=== PATIENT | female | born 1995 | race Caucasian/White ===

== ENCOUNTER 2018-03-26 15:07 | Emergency (ER) | payer OTHER, SELFPAY ==
[2018-03-26 15:08] VITALS: BP 125/81; PULSE 63; RESP 16; TEMP 37.2; O2SAT 100; BMI 25.7
--- NOTE | 2018-03-26 15:17 | CT_ITS ---
STUDY: CT BRAIN WITHOUT CONTRAST REASON FOR EXAM: Female, 22 years old. Headache RADIATION DOSAGE (If Supplied By Facility): CTDIvol = ( 44.99 ) mGy, DLP = ( 745.49 ) mGycm TECHNIQUE: Transaxial CT imaging of the brain was performed without administration of intravenous contrast material. Individualized dose optimization techniques were used for this CT. COMPARISON: None. FINDINGS: There is no acute bleed or infarct. There are normal white matter tracts. The ventricles are normal in configuration. There is no hydrocephalus. The visualized paranasal sinuses are clear. The mastoid air cells are well aerated. There is no skull fracture. CT/Brain/Head without Contrast IMPRESSION: No acute intracranial abnormality. Electronically Signed: Omari Martin, at 17:23 EDT Tel , Service support ,
--- NOTE | 2018-03-26 15:20 | ED.VISSUMM ---
- ER Visit Summary Date of Service: 03/26/18 Chief Complaint: Headache History of Present Illness: The patient is a 22 F who reports getting frequent headaches in the occiput region. She is never had this worked up or any imaging studies performed. She has had a headache to this area for the past 2 or 3 days. She woke this morning with more severe headache behind her eyes. She does have light sensitivity. She denies nausea, vomiting, or vision changes. She denies recent head injury or URI symptoms. She has had no fever. She took ibuprofen approximately 2 hours ago. Patient does state the headache is improved when compared to waking this morning, but is not resolved. Physical Examination: Vital signs are unremarkable. Patient sitting in a well lit room in no acute distress. Lights are turned on for her comfort. Head neck examination reveals no sign of trauma. Pupils are equal and reactive and extra ocular movements are intact. TMs are clear and posterior pharynx examination is normal. Neck is supple with no meningismus. Heart is regular rate and rhythm. Lung sounds clear. Abdomen is soft nontender. Neuro exam is normal. Test Results: CT head is unremarkable. Emergency Department Course and Treatment: Patient was given 15 mg of Toradol, Reglan, and Benadryl along with a liter of IV fluid. On repeat evaluation she does feel significantly improved and denies headache currently. She will be discharged home with family at this time. Treatment Plan: [] Disposition: Discharge Impression: Migraine, improved This note was generated with [employer] dictation software. It may contain incorrect words, spelling, and punctuation that were not noted in review of the chart prior to signing ED Disposition - Plan for ED Patient: Chief Complaint: Headache Referrals: NOT,DEFINED [NON-STAFF] -
[2018-03-26] MEDS: Metoclopramide 10 MG/2 ML Vial IV (16:00)
[2018-03-26] MEDS: Ketorolac 30 MG/ML Syringe 15 MG IV (16:00)
[2018-03-26] MEDS: 0.9% Normal Saline 1,000 ML 999 ML IV (16:00)
[2018-03-26] MEDS: DiphenhydrAMINE 50 MG/ML Syringe 25 MG IV (16:01)
--- NOTE | 2018-03-26 17:23 | ED.DEP ---
ED Disposition - Plan for ED Patient: Disposition: Home or Assisted Living Chief Complaint: Headache Instructions: ED Headache Migraine Additional Instructions: Follow-up with your physician as needed. Return to ED for worsened symptoms or any other concerns.
[2018-03-26 17:39] VITALS: BP 113/77; PULSE 71; RESP 16; O2SAT 100
== END 2018-03-26 17:41 | disposition home or self-care (01) ==
PROVIDERS: Emergency Provider Emergency Medicine
DX: G43.909 Migraine, unspecified, not intractable, without status migrainosus (principal)
CPT/HCPCS: 70450; 96361; 96374; 96375; 99283; J7030

== ENCOUNTER 2020-11-25 18:35 | Emergency (ER) | payer OTHER, SELFPAY ==
[2020-11-25 18:36] VITALS: BP 125/71; PULSE 57; RESP 16; TEMP 36.6; O2SAT 100; BMI 25.2
[2020-11-25 18:38] VITALS: BP 125/71; PULSE 59; RESP 16; TEMP 36.6; O2SAT 100
--- NOTE | 2020-11-25 19:22 | EDS_ITS ---
HPI HPI - GI History of Present Illness Chief Complaint: Abd Pain Informant: patient Abdominal Pain/Flank Pain Onset: Weeks (2) Context: Gradual Onset Timing: Intermittent and Lasts (hours) Quality: Aching and Cramping Location: - (periumbilical) Current Severity: Mild Maximum Severity: Moderate Worsened by: Food (about an hour after some meals) Relieved by: Nothing (was better w/ natural treatments) Nausea/Vomiting/Emesis GI Symptom: Positive for Nausea; Negative for Vomiting Diarrhea/Melena/Hematochezia GI Symptom: Negative for Diarrhea, Melena and Hematochezia Associated Symptoms Associated Symptoms: Positive for Dysuria; Negative for Frequency, Hematuria and Urgency Narrative Narrative: Patient states the beginning the year she was having this pain but she took some natural homeopathic treatments which made the pain go away for multiple months and it came back couple weeks ago and has been much more frequent especially after meals. PFSH PFSH no medical history Home Medications dicyclomine 20 mg PO Q4H PRN PRN #20 capsule 11/25/20 [Rx Last Taken Unknown] omeprazole 20 mg PO DAILY #14 capsule 11/25/20 [Rx Last Taken Unknown] Allergy/AdvReac Type Severity Reaction Status Date / Time No Known Allergies Allergy Verified 03/26/18 15:10 Surgical History (Updated 11/25/20 @ 19:[address] Gregory Choi MD) History of appendectomy Social History Smoking Status: Never smoker ROS ROS ED Constitutional Constitutional ED: Denies chills or fever(s) Eyes Eyes: Denies change in vision or diplopia ENT ENT ED: Denies rhinorrhea or sore throat Cardiovascular Cardiovascular: Denies chest pain or palpitations Respiratory/Chest Respiratory/Chest: Denies cough or dyspnea Gastrointestinal Gastrointestinal: Reports as per HPI, abdominal pain and nausea; Denies diarrhea or vomiting Genitourinary Genitourinary ED: Denies dysuria or hematuria Musculoskeletal Musculoskeletal: Denies back pain or neck pain Integumentary Denies abscess or rash Neurologic Neurologic: Denies headache(s), paresthesias or weakness Psychiatric Psychiatric: Denies anxiety or suicidal thoughts EXAM Physical Exam Const Vital Signs: 11/25/20 18:36 11/25/20 18:38 Temperature 97.8 F 97.8 F Temperature Source Temporal Temporal Pulse Rate 57 L 59 L Respiratory Rate 16 16 Blood Pressure 125/71 H 125/71 H Blood Pressure Mean 89 89 Pulse Ox 100 100 Oxygen Delivery Method Room Air Room Air Positive well nourished and well developed General Appearance ED: well developed and NAD HEENT Reports moist mucous membranes normocephalic and atraumatic Eyes PERRL and EOMs intact bilaterally Neck full ROM and supple Resp normal respiratory effort and clear to auscultation bilaterally Cardio regular rate, regular rhythm and no murmurs GI non-distended GI Narrative: Mildly tender across upper abdomen. No guarding or rebound tenderness. No palpable mass. Auscultation: normoactive bowel sounds Palpation: soft Back/Spine no CVA tenderness General Back: other FROM Extremity normal to inspection General Extremety ED: Negative for edema, pulses abnormal or tenderness General Extremity: Negative for edema or pulses abnormal Neuro oriented x3, CN's II-XII intact bilaterally and no sensory deficits noted Sensorium / Orientation: awake and alert Motor Exam: strength 5/5 throughout Skin no rashes or lesions noted and no wounds MDM MDM MDM Narrative Medical decision making narrative: Patient symptoms sound GI/intestinal-related. I do not think a CT is indicated, basic labs were initially obtained and I did a bedside ultrasound of the gallbladder. She was a little tender there but negative sonographic Romero's and I see no stones, her gallbladder wall is grossly within normal limits. No hydronephrosis in the right kidney, no free fluid. Labs including liver enzymes, lipase, and urinalysis were all normal with a white blood count of 6.4, no shift. Certainly this confirms that his CT would not necessarily be helpful, furthermore she was improved significantly after GI cocktail and dicyclomine. 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 Differential is relatively broad. Follow-up advised, this could be diet based/related, or some type of inflammatory bowel disease, she is given a prescription for a PPI to use for 2 weeks, in addition to dicyclomine to use as needed. They are comfortable with this overall plan and will follow up with her doctor. Lab Data Attestation: I reviewed the patient's lab results. Labs: Laboratory Results - last 24 hr 11/25/20 11/25/20 11/25/20 19:25 19:25 19:25 WBC 6.4 RBC 4.40 Hgb 12.6 Hct 39.4 MCV 89.5 MCH 28.6 MCHC 32.0 RDW Std Deviation 42.3 RDW Coeff of [place] 12.9 Plt Count 193 MPV 10.5 Immature Gran % (Auto) 0.200 Neut % (Auto) 60.5 Lymph % (Auto) 29.2 [place] % (Auto) 8.2 Eos % (Auto) 1.4 Baso % (Auto) 0.5 Absolute Neuts (auto) 3.9 Absolute Lymphs (auto) 1.88 Nucleated RBC % 0 Sodium 141 Potassium 4.0 Chloride 107 Carbon Dioxide 28.0 Anion Gap 6 BUN 12 Creatinine 0.76 Estim Creat Clear Calc 105.01 Est GFR (MDRD) Af Amer 117 Est GFR (MDRD) Non-Af 97 BUN/Creatinine Ratio 15.7 Glucose 91 Calcium 9.2 Total Bilirubin 0.40 AST 12 L ALT 19 Alkaline Phosphatase 51 Total Protein 7.4 Albumin 4.0 Globulin 3.4 Albumin/Globulin Ratio 1.2 Lipase 63 L Serum , Qual NEGATIVE Urine Color Urine Clarity Urine pH Ur Specific [place] Urine Protein Urine Glucose (UA) Urine Ketones Urine Occult Blood Urine Nitrite Urine Bilirubin Urine Urobilinogen Ur Leukocyte Esterase Urine RBC Urine WBC Ur Squamous Epith Cells Urine Bacteria Urine Mucus 11/25/20 19:35 WBC RBC Hgb Hct MCV MCH MCHC RDW Std Deviation RDW Coeff of [place] Plt Count MPV Immature Gran % (Auto) Neut % (Auto) Lymph % (Auto) [place] % (Auto) Eos % (Auto) Baso % (Auto) Absolute Neuts (auto) Absolute Lymphs (auto) Nucleated RBC % Sodium Potassium Chloride Carbon Dioxide Anion Gap BUN Creatinine Estim Creat Clear Calc Est GFR (MDRD) Af Amer Est GFR (MDRD) Non-Af BUN/Creatinine Ratio Glucose Calcium Total Bilirubin AST ALT Alkaline Phosphatase Total Protein Albumin Globulin Albumin/Globulin Ratio Lipase Serum , Qual Urine Color Yellow Urine Clarity Sl. Cloudy Urine pH 5.0 Ur Specific [place] 1.015 Urine Protein Negative Urine Glucose (UA) Normal Urine Ketones Negative Urine Occult Blood 50 H Urine Nitrite Negative Urine Bilirubin Negative Urine Urobilinogen Normal Ur Leukocyte Esterase Negative Urine RBC 0 SEEN Urine WBC 0 SEEN Ur Squamous Epith Cells 0-5 SEEN Urine Bacteria 0 SEEN Urine Mucus 0 SEEN Discharge Plan Triage Chief Complaint: Abd Pain ED Provider: Gregory Choi Dx/Rx/DC Orders Clinical Impression: Periumbilical abdominal pain Instructions: ED Abdominal Pain Unkn Cause Fem Prescriptions: New dicyclomine 10 MG capsule 20 mg PO Q4H PRN PRN (Reason: abdominal discomfort) Qty: 20 RF: 0 omeprazole [omeprazole] 20 MG capsule 20 mg PO DAILY Qty: 14 RF: 0 Primary Care Provider: Care Physician,No Primary Referrals: Doctor,Your [STAFF PHYSICIAN] - (call for appt) Disposition Disposition: Home, Self Care
[2020-11-25] MEDS: Mag Hydrox/Al Hydrox/Simeth 30 ML UDC PO (19:30)
[2020-11-25] MEDS: Metoclopramide 10 MG/2 ML Vial 2.5 MG IV (19:30)
[2020-11-25] MEDS: Dicyclomine 10 MG Capsule 20 MG PO (19:30)
[2020-11-25 19:37] LABS: Absolute Lymphocyte Count 1.88 X10^3/uL (0.83-4.51); Absolute Neutrophil Count 3.9 X10^3/uL (2.0-7.7); Basophil# 0.03 X10^3/uL; Basophil% 0.5 % (0-1); Eosinophil# 0.09 X10^3/uL; Eosinophils% 1.4 % (0-5); Hematocrit 39.4 % (37-47); Hemoglobin 12.6 g/dL (12.0-15.0); Lymphocyte # 1.88 X10^3/ul (0.83-4.51); Lymphocyte % 29.2 % (19-41); Mean Corpuscular Hgb 28.6 pg (27.0-32.0); Mean Corpuscular Volume 89.5 fL (81-99); Mean Platelet Vol. 10.5 fl (6.2-12.0); Monocyte# 0.53 X10^3/uL; Monocyte% 8.2 % (0-10); NRBC Flagged by Analyzer 0 % (0-5); Neutrophil % 60.5 % (47-70); Platelet Count 193 K/mm3 (150-450); RBC Distribution Width CV 12.9 % (11.6-14.6); RBC Distribution Width SD 42.3 fl (35.1-43.9); White Blood Count 6.4 K/mm3 (4.4-11.0)
[2020-11-25 19:41] LABS: Bacteria 0 SEEN /hpf (None Seen); Mucous, Urine 0 SEEN /hpf (<or=2+); Red Blood Cells-Urine 0 SEEN /hpf (0-5); White Blood Cells 0 SEEN /hpf (0-5)
[2020-11-25 19:45] LABS: Color, Urine Yellow (Yellow); Glucose, Dipstick Normal (Normal); Ketone-Dipstick Negative (Negative); Leukocyte Esterase-Dipstick Negative /ul (Negative); Nitrite-Dipstick Negative (Negative); Occult Blood-Urine 50 /ul (Negative); Protein-Dipstick Negative (Negative); Specific Gravity, Urine 1.015 (1.002-1.030); Urine Bilirubin Dipstick Negative (Negative); Urine Clarity Sl. Cloudy (Clear); Urine Urobilinogen Normal (Normal)
[2020-11-25 19:54] LABS: Internal QC Validated? YES +Cl - CLEAR BKGD; Pregnancy, Serum, hCG Quali. NEGATIVE Negative
[2020-11-25 19:57] LABS: ALB/GLOB Ratio 1.2 RATIO (0.9-2.4); AST(SGOT) 12 U/L (15-37); Alanine Aminotransfer ALT/SGPT 19 U/L (13-56); Alkaline Phosphatase 51 U/L (45-117); Anion Gap 6 (5-15); BUN 12 mg/dL (7-18); BUN/Creat Ratio 15.7 RATIO (10-20); Calcium,Total 9.2 mg/dL (8.5-10.1); Chloride 107 mmol/L (98-107); Creatinine, Serum 0.76 mg/dL (0.55-1.02); EST Glomerular Filtration Rate 97 mL/min (>60); Est Glom Filt Rate - Afr Amer 117 mL/min (>60); Estimated Creatinine Clearance 105.01 ml/min; Globulin 3.4 g/dL (2.2-4.2); Glucose 91 mg/dL (74-106); Lipase 63 U/L (73-393); Protein, Total 7.4 g/dL (6.4-8.2); Sodium Level 141 mmol/L (136-145)
[2020-11-25 20:01] LABS: Squamous Epithelial Cells - UA 0-5 SEEN /hpf (5-10)
== END 2020-11-25 21:40 | disposition home or self-care (01) ==
PROVIDERS: Emergency Provider Emergency Medicine
DX: R10.33 Periumbilical pain (principal)
CPT/HCPCS: 80053; 81001; 83690; 84703; 85025; 96374; 99284; A4216